=== PATIENT | female | born 1955 | race Caucasian/White ===

== ENCOUNTER → 2017-05-16 | Outpatient (CLI) | payer BC ==
--- NOTE | ~2017-05-16 | US6 ---
[facility] A Service of [facility] RADIOLOGY TEXT RESULTS PATIENT: CHAPINCITO ROYAL LOCATION: [facility] : 51 UNIT #: [id number] AGE: [address]: Ezequiel Pinto MD SEX: F ORDER DR: [id number] [facility] [address] [place], [place] [address] [id number] O MR#: [id number] Acc #: [id number] NAME: CHAPINCITO ROYAL : 1955 SEX: F STUDY DATE/TIME: 05/16/2017 7:25 UNIT: CGUS ROOM: STUDY DESCRIPTION: US Abdominal Limited Attending Physician: Ezequiel Pinto M.D. Referring Physician: Ezequiel Pinto M.D. Ordering Physician: Ezequiel Pinto M.D. Primary Care Physician: Ezequiel Pinto M.D. MEDICAL IMAGING REPORT This report is preliminary unless electronic signature is present EXAM Right upper quadrant abdominal ultrasound INDICATION Nausea and vomiting after eating for the past 3 months. PROCEDURE Gonzales-scale and Doppler imaging right upper quadrant of the abdomen. COMPARISON None. FINDINGS Visualized portions of pancreas are unremarkable. Liver measures 14.3 cm. Liver shows increased echotexture compared with the right kidney. Right kidney measures 11.4 cm and is unremarkable. Common duct measures 4-5 mm. Unremarkable gallbladder. IMPRESSION Increased liver echotexture suggesting steatosis. Otherwise negative right upper quadrant ultrasound. Dictated by... Deo Mendes M.D. THIS IS AN ELECTRONICALLY VERIFIED REPORT Deo Mendes M.D. at 05/17/2017 3:28 PM CELIA/stacy TD: 05/16/2017 09:14 JOB #: [id number] [facility] A Service [facility] RADIOLOGY TEXT RESULTS PATIENT: CHAPINCITO ROYAL LOCATION: [facility] : 51 UNIT #: [id number] AGE: [address]: Ezequiel Pinto MD SEX: F ORDER DR: MEDICAL IMAGING REPORT Page 1 of 1 COPY
--- NOTE | ~2017-05-16 | NM22 ---
[facility] A Service of [facility] RADIOLOGY TEXT RESULTS PATIENT: CHAPINCITO ROYAL LOCATION: [facility] : 51 UNIT #: [id number] AGE: [address]: Ezequiel Pinto MD SEX: F ORDER DR: [id number] [facility] [address] [place], [place] [address] [id number] O MR#: [id number] Acc #: [id number] NAME: CHAPINCITO ROYAL : 1955 SEX: F STUDY DATE/TIME: 05/16/2017 8:25 UNIT: US ROOM: STUDY DESCRIPTION: [facility] Hepatobiliary [facility] Attending Physician: Ezequiel Pinto M.D. Referring Physician: Ezequiel Pinto M.D. Ordering Physician: Ezequiel Pinto M.D. Primary Care Physician: Ezequiel Pinto M.D. MEDICAL IMAGING REPORT This report is preliminary unless electronic signature is present EXAM Radionuclide biliary scan 05/16/2017 HISTORY Nausea. Nausea, vomiting, chest pain for 2 months. History of gastritis and gastroesophageal reflux disease. TECHNIQUE Following intravenous administration of 5.86 mCi technetium 99m Choletec, static images of the abdomen were obtained at 15-minute intervals over 60 minutes. The patient then received 1.8 mcg Kinevac by intravenous infusion over 30 minutes. Static images obtained at 2-minute intervals over 30 minutes. Region of interest drawn around stomach and time-activity curve constructed. FINDINGS Homogeneous distribution of radiotracer throughout the liver at 15 minutes post administration. Radiotracer seen in the gallbladder and common bile duct at 15 minutes post administration and clearly visualized in the duodenum at 45 minutes post administration. There is no evidence of acute cholecystitis, cystic duct or common bile duct obstruction. With Kinevac stimulation, the 30-minute gallbladder ejection fraction is 94%. Normal is greater than or equal to 30%. Dictated by... Jhonny Godwin M.D. THIS IS AN ELECTRONICALLY VERIFIED REPORT Jhonny Godwin M.D. at 05/16/2017 6:31 PM Aida TD: 05/16/2017 16:10 JOB #: [id number] [facility] A Service of [facility] RADIOLOGY TEXT RESULTS PATIENT: CHAPINCITO ROYAL LOCATION: [facility] : 51 UNIT #: [id number] AGE: [address]: Ezequiel Pinto MD SEX: F ORDER DR: MEDICAL IMAGING REPORT Page 1 of 1 COPY
== END | disposition home or self-care (01) ==
LOC: CGUS 07:03
DX: K29.70 Gastritis, unspecified, without bleeding (principal); R11.2 Nausea with vomiting, unspecified
CPT/HCPCS: 76705; 78227; A9537; J2805